=== PATIENT | female | born 1960 | race Caucasian/White ===

== ENCOUNTER 2016-11-08 17:29 | Day surgery (SDC) | payer BC ==
[~2016-11-08] VITALS: Ht 162.6 cm; Wt 120.0 kg
[2016-11-08] VITALS (9 sets, daily range): BP systolic 90–154; BP diastolic 58–102; PULSE 70–98; TEMP 98–100
[2016-11-08] MEDS ORDERED: MOTRIN 200200 MG/TAB PO (18:32)
[2016-11-09 00:45] VITALS: BP 121/64; PULSE 74
[2016-11-09 02:00] VITALS: BP 116/53; PULSE 76
[2016-11-09 02:33] VITALS: BP 111/62; PULSE 72; TEMP 97.2
[2016-11-09 04:47] VITALS: BP 118/60; PULSE 73; TEMP 98.5
[2016-11-09 09:36] VITALS: BP 134/62; PULSE 74; TEMP 98.1
== END 2016-11-09 13:40 | disposition home or self-care (01) ==
LOC: SDCO 17:29 → SURG 17:29 → SDCO 11-09 13:40
DX: K35.80 Unspecified acute appendicitis (principal); E66.9 Obesity, unspecified
CPT/HCPCS: OP; J0690; J1100; J2405; J2543; J2704; J2765; J3010; J7050; J7120

== ENCOUNTER 2016-11-28 08:39 | Inpatient (IN) | payer BC ==
[~2016-11-28] VITALS: Ht 162.6 cm; Wt 116.0 kg
[~2016-11-28 08:39] MED LIST: MOTRIN 200200 MG/TAB PO
[2016-12-24] VITALS (15 sets, daily range): BP systolic 115–134; BP diastolic 52–86; PULSE 57–92; TEMP 98–102
[2016-12-25 00:22] VITALS: BP 98/58; PULSE 68; TEMP 98.2
[2016-12-25 05:21] VITALS: BP 141/72; PULSE 87; TEMP 97.5
[2016-12-25 07:27] VITALS: BP 138/73; PULSE 82; TEMP 99.1
[2016-12-25 08:32] LABS: HEMATOCRIT 31.1 % (37.0-47.0); HEMOGLOBIN 10.1 g/dl (12.5-16.0)
[2016-12-25 15:40] VITALS: BP 127/70; PULSE 72; TEMP 98.2
[2016-12-25 19:47] VITALS: BP 123/54; PULSE 72; TEMP 98.2
[2016-12-25 23:43] VITALS: BP 152/58; PULSE 79; TEMP 98
[2016-12-26 04:02] VITALS: BP 138/67; PULSE 81; TEMP 98.6
[2016-12-26 05:50] LABS: HEMATOCRIT 28.9 % (37.0-47.0); HEMOGLOBIN 9.5 g/dl (12.5-16.0)
[2016-12-26 07:00] VITALS: BP 147/72; PULSE 93; TEMP 99.1
[2016-12-26 11:22] VITALS: BP 173/94; PULSE 102; TEMP 98.2
[2016-12-26 15:54] VITALS: BP 146/76; PULSE 72
[2016-12-26 19:52] VITALS: BP 143/77; PULSE 94; TEMP 98.5
[2016-12-27 00:27] VITALS: BP 130/80; PULSE 65; TEMP 98.5
[2016-12-27 04:22] VITALS: BP 140/87; PULSE 86; TEMP 98.5
[2016-12-27] MEDS ORDERED: ASPI325T6 PO (07:14)
[2016-12-27] MEDS ORDERED: NORCO 325 MG-7.1 TAB PO (07:15)
[2016-12-27] MEDS ORDERED: TYLENOL 500MG500 MG PO (07:16)
[2016-12-27] MEDS ORDERED: COLACE 100100 MG/CAP PO (07:16)
[2016-12-27 07:18] VITALS: BP 139/70; PULSE 91; TEMP 99.1
== END 2016-12-27 10:41 | disposition home or self-care (01) | DRG 470 ==
LOC: JCC 12-24 05:12
PROVIDERS: Orthopaedic Surgery
PROC: 0SRC0J9 Replacement of Right Knee Joint with Synthetic Substitute, Cemented, Open Approach (ICD-10-PCS; principal; 2016-12-24 07:30)
DX: M17.11 Unilateral primary osteoarthritis, right knee (principal); Q76.0 Spina bifida occulta; Z87.891 Personal history of nicotine dependence
CPT/HCPCS: A4315; A9284; C1713; C1776; J0690; J2250; J2274; J2704; J7120

== ENCOUNTER → 2016-12-10 | Outpatient (CLI) | payer BC ==
[~2016-12-10] MED LIST changes: +ASPI325T6 PO; +COLACE 100100 MG/CAP PO; +NORCO 325 MG-7.1 TAB PO; +TYLENOL 500MG500 MG PO
== END ==
LOC: COL.LAB 13:02
DX: Z01.812 Encounter for preprocedural laboratory examination (principal); M25.861 Other specified joint disorders, right knee

== ENCOUNTER → 2017-09-11 | Outpatient (CLI) | payer BC | LOC: MC.RAD 08:30 | DX: N64.89 Other specified disorders of breast (principal) ==

== ENCOUNTER → 2018-11-03 | Outpatient (CLI) | payer BC | LOC: MC.RAD 10:40 | DX: Z12.31 Encounter for screening mammogram for malignant neoplasm of breast (principal) ==

== ENCOUNTER → 2019-04-10 | Outpatient (CLI) | payer BC | LOC: MC.RAD 07:28 | DX: N63.22 Unspecified lump in the left breast, upper inner quadrant (principal); S20.02XA Contusion of left breast, initial encounter | CPT/HCPCS: G0279 ==

== ENCOUNTER → 2019-11-27 | Outpatient (CLI) | payer BC | LOC: MC.RAD 07:45 | DX: Z12.31 Encounter for screening mammogram for malignant neoplasm of breast (principal) ==

== ENCOUNTER → 2020-11-29 | Outpatient (CLI) | payer BC | LOC: MC.RAD 13:09 | DX: Z12.31 Encounter for screening mammogram for malignant neoplasm of breast (principal) ==

== ENCOUNTER → 2022-06-06 | Outpatient (CLI) | payer BC | LOC: MC.RAD 05-17 10:30 | DX: Z12.31 Encounter for screening mammogram for malignant neoplasm of breast (principal) ==

== ENCOUNTER → 2024-07-22 | Outpatient (CLI) | payer BC | LOC: MC.RAD 11:26 | DX: Z12.31 Encounter for screening mammogram for malignant neoplasm of breast (principal) ==